=== PATIENT | female | born 1990 | race Caucasian/White ===

== ENCOUNTER 2024-03-30 11:21 | Inpatient (IN) | payer BC ==
[2024-03-30] MEDS ORDERED: Bicitra 30 ML UDCUP PO PRN (12:32)
[2024-03-30] MEDS ORDERED: Diphenoxylate HCl/Atropine Tablet PO PRN (12:32)
[2024-03-30] MEDS ORDERED: Misoprostol 200 MCG TAB PR PRN (12:32)
[2024-03-30] MEDS ORDERED: Carboprost 250 MCG/ML AMP IM PRN (12:32)
[2024-03-30] MEDS ORDERED: Ondansetron PF 4 MG/2 ML Vial IVP PRN ×3 (12:32→21:21)
[2024-03-30] MEDS ORDERED: Promethazine HCl 25 MG/ML VIAL IM PRN ×3 (12:32→21:21)
[2024-03-30] MEDS ORDERED: Tranexamic Acid 1,000 MG/10 ML VIAL IVP PRN (12:32)
[2024-03-30] MEDS ORDERED: hydrALAZINE 20 MG/ML VIAL SLOW IVP PRN ×2 (12:32→21:21)
[2024-03-30] MEDS ORDERED: Oxytocin 30 units/NS 500 ML 500 ML IV SCH (12:45)
[2024-03-30 13:09] VITALS: BMI 30.8
[2024-03-30 13:14] LABS: Hematocrit 34.7 % (34.9-44.5); Hemoglobin 12.2 g/dL (12.0-15.5); Mean Corpuscular HGB CONC 35.2 g/dL (32.0-36.0); Mean Corpuscular Hemoglobin 32.5 pg (27.0-33.0); Mean Corpuscular Volume 92.5 fl (81.6-98.3); Mean Platelet Volume 11.3 fl (7.4-10.4); Platelet Count 158 10x3/uL (150-450); RBC Distribution Width 13.8 % (11.5-14.5); Red Blood Cell (RBC) Count 3.75 10x6/uL (3.90-5.03); White Blood Cell (WBC) Count 10.6 10x3/uL (3.5-10.5)
[2024-03-30 13:30] LABS: ALT (SGPT) 13 U/L (8-55); AST (SGOT) 15 U/L (5-34); Albumin 2.8 g/dL (3.5-5.0); Alkaline Phosphatase 503 U/L (40-110); Anion Gap 13 mmol/L (10-20); BUN (Urea Nitrogen) 4 mg/dL (7.0-18.7); Bilirubin, Total 0.3 mg/dL (0.2-1.2); Calc. Creatinine Clearance 177 mL/min (70-130); Calcium 8.7 mg/dL (7.8-10.44); Carbon Dioxide 21 mmol/L (22-29); Chloride 107 mmol/L (98-107); Estimated GFR 124; Globulin 3.6 g/dL (2.4-3.5); Glucose 80 mg/dL (70-105); Potassium 3.8 mmol/L (3.5-5.1); Protein, Total 6.4 g/dL (6.0-8.3); Sodium 137 mmol/L (136-145)
[2024-03-30 13:48] LABS: Syphilis Antibody Nonreactive (Nonreactive); Syphilis Antibody Index 0.12 S/CO (<1.00 Non-Reactive)
[2024-03-30 13:50] LABS: HBsAg Index 0.21 S/CO (0-0.99); Hep B Surf Ag - L&D Non-Reactive S/CO (NonReactive)
[2024-03-30] MEDS: Famotidine/PF 20 mg/2ml Vial SLOW IVP PRN (15:54)
[2024-03-30] MEDS: Lactated Ringer's 1,000 ML IV SCH (15:54)
[2024-03-30] MEDS: CEFAZOLIN 2 GM in Sodium Chloride 0.9% 100 ML IVPB SCH (15:55)
[2024-03-30] MEDS ORDERED: Moisturizing Cream (Eucerin) 113 GM JAR TOP PRN (17:33)
[2024-03-30] MEDS ORDERED: Naloxone HCl 0.4 mg/ml Vial IV PRN (17:33)
[2024-03-30] MEDS ORDERED: Meperidine HCl/PF 25 MG (1 mL) VIAL SLOW IVP PRN (17:33)
[2024-03-30] MEDS ORDERED: fentaNYL 50 mcg/mL 1 mL Vial SLOW IVP PRN (17:33)
[2024-03-30] MEDS ORDERED: Naloxone HCl 0.4 mg/ml Vial IVP PRN ×2 (17:33)
[2024-03-30] MEDS ORDERED: Ketorolac Tromethamine 30 MG (1 mL) VIAL IVP PRN (17:33)
[2024-03-30] MEDS ORDERED: Communication Order-Pharmacy FS SCH ×2 (17:45→21:30)
[2024-03-30] MEDS: Ketorolac Tromethamine 30 MG (1 mL) VIAL IVP SCH (20:05)
[2024-03-30] MEDS: Ondansetron PF 4 MG/2 ML Vial IVP PRN (20:07)
[2024-03-30] MEDS ORDERED: Lanolin Ointment 7 GM TUBE TOP PRN (21:21)
[2024-03-30] MEDS ORDERED: Bisacodyl 10 MG SUPP PR PRN (21:21)
[2024-03-30] MEDS ORDERED: Boostrix 0.5 ML (Tdap) VIAL (>/=7 yrs of age) IM ONE (21:21)
[2024-03-30] MEDS: diphenhydrAMINE 50 MG/ML VIAL IVP PRN (21:33)
[2024-03-30] MEDS: Ibuprofen 800 MG TAB PO SCH (22:00)
[2024-03-31] MEDS: Morphine 4 MG/ML VIAL SLOW IVP PRN (00:31)
[2024-03-31] MEDS: diphenhydrAMINE 25 MG CAP PO PRN (01:44)
[2024-03-31 03:56] LABS: Hematocrit 27.8 % (34.9-44.5); Hemoglobin 9.6 g/dL (12.0-15.5); Mean Corpuscular HGB CONC 34.5 g/dL (32.0-36.0); Mean Corpuscular Hemoglobin 32.4 pg (27.0-33.0); Mean Corpuscular Volume 93.9 fl (81.6-98.3); Mean Platelet Volume 11.4 fl (7.4-10.4); Platelet Count 146 10x3/uL (150-450); RBC Distribution Width 13.6 % (11.5-14.5); Red Blood Cell (RBC) Count 2.96 10x6/uL (3.90-5.03); White Blood Cell (WBC) Count 14.6 10x3/uL (3.5-10.5)
[2024-03-31] MEDS ORDERED: HYDROcodone/Acetaminophen 5/325 mg Tablet PO PRN (05:45)
[2024-03-31] MEDS ORDERED: Meperidine HCl/PF 25 MG (1 mL) VIAL IM PRN (05:45)
[2024-03-31] MEDS ORDERED: Diphenoxylate HCl/Atropine Tablet PO PRN (05:45)
[2024-03-31] MEDS: Ferrous Sulfate 325 MG TAB PO SCH ×2 (06:23→09:19)
[2024-03-31] MEDS: Docusate 100 MG CAP PO SCH ×2 (06:24→09:19)
[2024-03-31] MEDS: Morphine PF 10 MG/10 ML VIAL ONE (07:32)
[2024-03-31] MEDS: Dexmedetomidine 200 MCG/2 ML VIAL ONE (07:32)
[2024-03-31] MEDS: Oxytocin 10 UNITS/ML VIAL ONE (07:32)
[2024-03-31] MEDS: Ondansetron PF 4 MG/2 ML Vial ONE (07:33)
[2024-03-31] MEDS: PHENYLEPHRINE-NS 100 MCG/ML 10 ML SYRINGE ONE (07:33)
[2024-03-31] MEDS: Simethicone Chewable 80 MG TAB PO PRN (09:19)
[2024-03-31] MEDS: Prenatal Vitamin 1 TAB PO SCH (09:20)
[2024-03-31] MEDS: HYDROcodone/Acetaminophen 5/325 mg Tablet PO PRN (09:22)
[2024-04-01] MEDS: NIFEdipine XL 30 MG ER.TAB PO SCH (08:21)
[2024-04-02] MEDS: cloNIDine 0.1 MG TAB PO PRN (19:56)
[2024-04-03 09:09] VITALS: BP 119/68; TEMP 98.6
== END 2024-04-03 11:40 | disposition home or self-care (01) | DRG 788 ==
LOC: CSHLD 11:21 → CSHPP 20:48
PROVIDERS: ADMIT Family Medicine; ATTEND Family Medicine
PROC: 10D00Z1 Extraction of Products of Conception, Low, Open Approach (ICD-10-PCS; principal; 2024-03-30)
DX: O13.4 Gestational [pregnancy-induced] hypertension without significant proteinuria, complicating childbirth (principal); O34.211 Maternal care for low transverse scar from previous cesarean delivery; E66.9 Obesity, unspecified; O99.214 Obesity complicating childbirth; Z3A.38 38 weeks gestation of pregnancy; Z37.0 Single live birth; Z88.1 Allergy status to other antibiotic agents; Z91.048 Other nonmedicinal substance allergy status
CPT/HCPCS: 36415; 51702; 80053; 85027; 86780; 86850; 86900; 86901; 87340; J1200; J1885; J2270; J2274; J2405; J2590; J3490; J7120; S0028

== ENCOUNTER 2024-10-06 23:30 | Emergency (ER) | payer BC ==
[2024-10-07 00:03] LABS: Bilirubin Neg (Negative); Blood, Urine Negative (Negative); Clarity Clear (Clear); Glucose, Urine (Dipstick) Normal (Negative); Ketone, Urine Negative (Negative); Leukocyte Negative (Negative); Nitrite Negative (Negative); Protein, Urine (Dipstick) Negative (Neg-Trace); Urobilinogen Normal mg/dL (Less than 2)
[2024-10-07 00:16] LABS: Pregnancy Test - Urine (BHCG) Negative (Negative); Pregu Control Background? CLEAR/WHITE (CLR/WHITE); Pregu Control Bar Appear? YES (CONTROL BAR)
[2024-10-07] MEDS ORDERED: Morphine 4 MG/ML VIAL ONE (00:21)
[2024-10-07] MEDS ORDERED: Ondansetron PF 4 MG/2 ML Vial ONE (00:21)
[2024-10-07 00:31] LABS: Bacteria/HPF Rare-Few HPF (None Seen); CAUTI Indications for Culture Pelvic or flank pain; RBC/HPF 0-3 HPF (0-3); Squamous Epithelial 0-3 HPF (0-3); WBC/HPF 0-3 HPF (0-3)
[2024-10-07 00:32] LABS: Urine Culture Reflex No No
[2024-10-07 01:01] LABS: #Basophils 0.04 10x3/uL (0.0-0.2); #Eosinophils 0.26 10x3/uL (0.0-0.5); #Monocytes 0.36 10x3/uL (0.0-1.1); #Neutrophils 2.65 10x3/uL (1.5-8.4); %Basophils 0.7 % (0.0-2.0); %Eosinophils 4.7 % (0.0-6.0); %Lymphocytes 39.4 % (18.0-47.0); %Monocytes 6.6 % (0.0-10.0); %Neutrophils 48.4 % (40.0-75.0); Hemoglobin 12.4 g/dL (12.0-15.5); Mean Corpuscular HGB CONC 33.5 g/dL (32.0-36.0); Mean Corpuscular Hemoglobin 30.7 pg (27.0-33.0); Mean Corpuscular Volume 91.6 fL (81.6-98.3); Mean Platelet Volume 10.1 fL (7.4-10.4); Platelet Count 228 10x3/uL (150-450); RBC Distribution Width 12.9 % (11.5-14.5); Red Blood Cell (RBC) Count 4.04 10x6/uL (3.90-5.03); White Blood Cell (WBC) Count 5.5 10x3/uL (3.5-10.5)
[2024-10-07 01:05] LABS: ALT (SGPT) 17 U/L (8-55); AST (SGOT) 19 U/L (5-34); Alkaline Phosphatase 55 U/L (40-110); Anion Gap 13 mmol/L (10-20); BUN (Urea Nitrogen) 6 mg/dL (7.0-18.7); Bilirubin, Total 0.3 mg/dL (0.2-1.2); Calc. Creatinine Clearance 0 mL/min (70-130); Calcium 9.2 mg/dL (7.8-10.44); Carbon Dioxide 24 mmol/L (22-29); Chloride 106 mmol/L (98-107); Estimated GFR 118; Globulin 3.3 g/dL (2.4-3.5); Glucose 87 mg/dL (70-105); Lipase 20 U/L (8-78); Potassium 3.9 mmol/L (3.5-5.1); Protein, Total 7.3 g/dL (6.0-8.3); Sodium 139 mmol/L (136-145)
[2024-10-07] MEDS ORDERED: HYDROcodone/Acetaminophen 5/325 mg Tablet ONE (02:31)
== END 2024-10-07 02:30 | disposition home or self-care (01) ==
LOC: CSHERS 23:30
DX: N83.201 Unspecified ovarian cyst, right side (principal)
CPT/HCPCS: 74177; 76705; 80053; 81001; 81025; 83690; 85025; 96374; 96375; J2272; J2405